=== PATIENT | female | born 1985 | race African-American/Black ===

== ENCOUNTER 2022-12-14 18:40 | Emergency (ER) | payer OTHER ==
[~2022-12-14] VITALS: Ht 172.7 cm; Wt 92.1 kg
[2022-12-14] MEDS ORDERED: ACETAMINOPHEN 500 MG TAB PO ONE (19:30)
[2022-12-14 19:48] LABS: Basophils # (auto) 0 10 ^3/uL (0-0.2); Basophils % (auto) 0.4 % (0.0-2.0); Eosinophils # (auto) 0 10 ^3/uL (0-0.8); Hematocrit 32.9 % (36.0-46.0); Hemoglobin 10.5 g/dL (12.2-16.2); Lymphocytes # (auto) 1.4 10 ^3/uL (0.4-5.4); Lymphocytes % (auto) 39.7 % (10.0-50.0); Mean Corpuscular Hemoglobin 26.6 pg (28.0-32.0); Mean Corpuscular Volume 83.2 fL (80.0-100.0); Monocytes # (auto) 0.2 10 ^3/uL (0-1.3); Monocytes % (auto) 6.9 % (0.0-12.0); Neutrophils # (auto) 1.9 10 ^3/uL (1.6-8.6); Nucleated Red Blood Cells % 0.2 %; Red Blood Cells 3.96 10^6/uL (4.0-5.20); Red Cell Distribution Width 13.6 % (11.8-14.3); White Blood Cell 3.6 10^3/uL (4.4-10.8)
[2022-12-14 20:03] LABS: INR 0.99 (0.9-1.15); Partial Thromboplastin Time 27.6 sec (24.6-33.4)
[2022-12-14 20:05] LABS: Albumin 3.5 g/dL (3.4-5.0); Calcium 8.5 mg/dL (8.5-10.1); Potassium 3.9 mmol/L (3.5-5.1)
[2022-12-14 20:09] LABS: BUN/Creatinine Ratio 16.4 (10.0-20.0); Bilirubin, Total 0.2 mg/dL (0.2-1.0)
[2022-12-14] MEDS ORDERED: IOHEXOL 350 MG/ML 100ML IJ ONE (20:46)
[2022-12-14 21:33] LABS: Urine Bacteria NONE SEEN /hpf (None Seen); Urine Blood 3+ /uL (Negative); Urine Specific Gravity 1.019 (1.001-1.035); Urine WBC 18 /hpf (0 - 5)
[2022-12-14] MEDS ORDERED: ACET-1158 PO (22:10)
[2022-12-14] MEDS ORDERED: NITR-87 PO (22:10)
[2022-12-14 22:22] VITALS: BP 129/69
== END 2022-12-14 22:46 | disposition home or self-care (01) ==
LOC: ER 18:40
DX: N39.0 Urinary tract infection, site not specified (principal); K52.9 Noninfective gastroenteritis and colitis, unspecified; D64.9 Anemia, unspecified; K76.0 Fatty (change of) liver, not elsewhere classified; R10.2 Pelvic and perineal pain; Z88.5 Allergy status to narcotic agent
CPT/HCPCS: 36415; 71260; 74177; 80053; 81001; 84702; 85025; 85379; 85610; 85730; 86850; 86900; 86901; 99285; Q9967

== ENCOUNTER 2024-11-15 16:10 | Emergency (ER) | payer MEDICAID, OTHER ==
[~2024-11-15] VITALS: Ht 170.2 cm; Wt 105.7 kg
[~2024-11-15 16:10] MED LIST: ACET500T58 PO; AZIT500T66 PO; IBUP-1456 PO; NITR-87 PO; PROM1SOL4 PO
--- NOTE | 2024-11-15 16:39 | ED.PDOC ---
JUNIOR TECHNICAL WRITER HPI Comments 39y F who presents to the ED for chief complaint of vaginal bleeding. - pt states she was leaning over her bed earlier this afternoon and states while straining, she felt "a gush of blood " and went to bathroom and noted she saw passed some blood - pt states she applied diaper and preceded to call her OB who referred her to the ED for further evaluation - pt states she is currently 14 1/2 weeks and states she was diagnosed with placenta previa in this , - pt is currently , 1 miscarriage, with 6 live births and 1- csection - pt otherwise states she is taking Lovenox for history of PE and is otherwise on pre-kendrick vitamins Past medical history: Pulmonary embolus past surgical history: 1x Medications: lovenox, pre-kendrick vitamins Allergies: codeine Social history: denies ETOH, denies tobacco use, denies drug use [place] HPI: Poor Historian. Patient has pinkish water discharge. We will rule out premature rupture of membrane. Patient is on Lovenox for history of PEs. Denies any recent fall or trauma. Onset of symptoms happened as she was st raining herself trying to get out of bed from a reclined position. Past Medical History: Past Surgical History: REVIEW OF SYSTEMS: CONSTITUTIONAL: Denies acute: fever, diaphoresis, chills, generalized weakness. HEAD: Denies acute: headache, photophobia Eyes: Denies acute: Double vision, vision loss, eye pain, eye discharge. EARS: Denies acute: tinnitus, hearing loss, ear discharge, ear pain, THROAT: Denies acute: sore throat, swelling, difficulty swallowing , pain with swallowing, change in voice. NECK: Denies acute: neck pain, neck swelling, stiff neck. HEART: Denies acute : chest pain, palpitations, LUNGS: Denies acute: SOB, wheezing, cough, hemoptysis ABDOMEN: Denies acute: abdominal pain, Nausea, Vomiting, diarrhea, melena , hematemesis, hematochezia SKIN: Denies acute: rash, redness, lesions, itchiness. EXTREMITIES: Denies acute: calf pain, numbness, tingling, weakness, denies pain in extremity. Denies acute: Low back pain. Neuro: Denies acute: focal neurological deficit, motor or sensory focal neurological deficit, tremors, seizure like activity, confusion, dizziness, change in mental status, loss of bowel or bladder function, cauda equina like symptoms. : Denies acute: dysuria, hematuria, flank pain, increase in urinary frequency. PSYCH: Denies acute: hallucination, suicidal ideation, homicidal ideation. FEMALE: Denies acute: foul odor, PHYSICAL EXAM: General: ---no-----acute distress, awake and alert. Head: normocephalic, atraumatic. Neck: supple, trachea is midline, no swelling. Throat: Normal phonation. Eyes:, no erythema, no purulent discharge, no proptosis, no icterus. Heart: regular rate, regular rhythm, no significant murmur appreciated. Lungs: no apparent respiratory distress, Able to speak in full sentences. No wheezing, no rhonchi, no crackles. No stridors Clear to auscultation bilaterally. Abdomen: non tender to palpation, non distended, soft, no guarding, no rebound, + bowel sounds. Obese Neuro: Awake, Alert, oriented to name, self, situation, follows commands GCS=15. Speech is normal. Skin: no petechia, no purpura, no cyanosis, non-pale, not jaundice. Lower extremities: --no - Pitting edema no deformity, no focal swelling, no calf TTP. Makes eye contact. moves all four extremities. Face: no apparent facial droop. Ambulating in the ED independently. ED COURSE: Chief Complaint: Vaginal Bleed Time Seen by MD: 16:54 Reviewed Notes: Nurses Notes, Medications, Allergies Allergies: Coded Allergies: Codeine (Verified Allergy, Mild, 12/14/22) Home Meds Active Scripts Cephalexin Monohydrate (Cephalexin) 500 Mg Tab, 1 TAB PO TID for 5 Days, #15 TAB Prov:CHRISSIE VERDUGO DO 11/15/24 Promethazine-Dm (Promethazine Dm 6.25-15 mg/5Ml) 1 Morelia Morelia, 5 ML PO TID, #150 ML Prov:WILLIAM COMBS 11/01/23 Azithromycin (Azithromycin) 500 Mg Tab, 1 TAB PO DAILY, #5 TAB Prov:WILLIAM COMBS PA 11/01/23 Ibuprofen (Ibuprofen) 800 Mg Tab, 1 TAB PO TID, #30 TAB Prov:WILLIAM COMBS PA 11/01/23 Acetaminophen (Acetaminophen) 500 Mg Tab, 500 MG PO Q4HP PRN, #30 TAB Prov:NANCY ASH PAC 12/14/22 Nitrofurantoin Monohydrate Mac (Macrobid) 100 Mg Cap, 100 MG PO BID for 7 Days, #14 CAP Prov:NANCY ASH PAC 12/14/22 Information Source: Patient Mode of Arrival: Ambulatory Past Medical History PAST MEDICAL HISTORY: Denies Surgical History: Denies all surgeries LEGEND MAKER History: Denies all LEGEND MAKER Hx Family History Family History: Reviewed,noncontributory to illness Social History Smoker: Non-Smoker Alcohol: Denies ETOH Use Drugs: Denies Drug Use Lives In: Home Was a procedure done? Was a procedure done?: No Differential Diagnosis (LEGEND MAKER) Vaginal Bleeding: - Complete, - Incomplete, - Inevitable, - Missed, - Threatened, Abruptio Placentae, Blood Loss Anemia, Cervicitis, Dysmenorrhea, Ectopic , Hormonal, Menorrhagia, Menometrorrhagia, Menstrual Bleeding, Myomatous Uterus, PID, Placenta Previa, Precipitous Hct, Trauma, UTI, Vaginitis, Other X-Ray, Labs, Meds, VS Vital Signs Date Time Temp Pulse Resp B/P (MAP) Pulse Ox O2 Delivery O2 Flow Rate FiO2 11/15/24 19:30 98.6 76 20 117/64 (81) 100 98.6 11/15/24 19:20 Room Air* 0 21 11/15/24 16:46 98.8 91 18 133/76 (95) 98 98.8 Lab Test 11/15/24 16:44 11/15/24 16:33 Range/Units White Blood Count 6.9 4.4-10.8 10^3/uL Red Blood Count 3.92 L 4.0-5.20 10^6/uL Hemoglobin 10.3 L 12.2-16.2 g/dL Hematocrit 31.3 L 36.0-46.0 % Mean Corpuscular Volume 79.7 L 80.0-100.0 fL Mean Corpuscular Hemoglobin 26.2 L 28.0-32.0 pg Mean Corpuscular Hemoglobin Concent 32.8 32.0-36.0 g/dL Red Cell Distribution Width 15.8 H 11.8-14.3 % Platelet Count 187 140-450 10^3/uL Mean Platelet Volume 8.8 6.9-10.8 fL Neutrophils (%) (Auto) 68.3 37.0-80.0 % Lymphocytes (%) (Auto) 23.4 10.0-50.0 % Monocytes (%) (Auto) 7.3 0.0-12.0 % Eosinophils (%) (Auto) 0.7 0.0-7.0 % Basophils (%) (Auto) 0.3 0.0-2.0 % Neutrophils # (Auto) 4.7 1.6-8.6 10 ^3/uL Lymphocytes # (Auto) 1.6 0.4-5.4 10 ^3/uL Monocytes # (Auto) 0.5 0-1.3 10 ^3/uL Eosinophils # (Auto) 0.1 0-0.8 10 ^3/uL Basophils # (Auto) 0 0-0.2 10 ^3/uL Nucleated Red Blood Cells 0.0 % Sodium Level 135 L 136-145 mmol/L Potassium Level 3.6 3.5-5.1 mmol/L Chloride Level 106 98-107 mmol/L Carbon Dioxide Level 21 20-31 mmol/L Anion Gap 8 5-15 Blood Urea Nitrogen 7 L 9-23 mg/dL Creatinine 0.64 0.550-1.02 mg/dL Glomerular Filtration Rate Calc 114 >90 mL/min BUN/Creatinine Ratio 10.9 10.0-20.0 Serum Glucose 144 H 74-106 mg/dL Calcium Level 9.7 8.7-10.4 mg/dL Total Bilirubin 0.2 0.2-1.0 mg/dL Aspartate Amino Transferase (AST) 8 L 13-40 U/L Alanine Aminotransferase (ALT) < 9 7-40 U/L Alkaline Phosphatase 40 L 46-116 U/L Total Protein 7.1 5.7-8.2 g/dL Albumin 4.2 3.2-4.8 g/dL Beta HCG, Quantitative 384577.6 H 1.5-4.2 mIU/mL Urine Color Light-yellow Yellow Urine Clarity Clear Clear Urine pH 6.0 5.0-9.0 Urine Specific [place] 1.028 1.001-1.035 Urine Protein Trace H Negative Urine Ketones Trace Negative Urine Blood 2+ H Negative /uL Urine Nitrite Negative Negative Urine Bilirubin Negative Negative Urine Urobilinogen 2 H Negative mg/dL Urine Leukocyte Esterase Negative Negative /uL Urine RBC 12 0 - 4 /hpf Urine Microscopic WBC 2 0-5 /HPF Urine Squamous Epithelial Cells Few <5 /hpf Urine Bacteria None seen None Seen /hpf Urine Glucose 4+ H Normal mg/dL Current Medications Medications (Trade) Dose Ordered Sig/Kathryn Route Start Time Stop Time Status Last Admin Sodium Chloride 1,000 ml @ 1,000 mls/hr Q1H ONCE IV 11/15/24 17:30 11/15/24 18:29 DC 11/15/24 18:19 Ampicillin Sodium 2 gm/Sodium Chloride 100 ml @ 100 mls/hr ONCE ONCE IV 11/15/24 17:30 11/15/24 18:29 DC 11/15/24 19:20 [place] [id number] Ph: [phone] DIAGNOSTIC IMAGING Diagnostic Imaging Report : [id number] Signed PATIENT: LINDA BERMUDEZACCT: [id number] UNIT: [id number] : 1985 LOC: ER ROOM / BED: / AGE / SEX: 39 / F ADM STATUS: REG ER SERVICE 1631 ORDERING PHYSICIAN: CHRISSIE VERDUGO DO PROCEDURE(s): OBUS - OB ULTRASOUND COMP GTR 14 WKS REASON: vag bleed ORDER NUMBER(s): [id number], ACCESSION NUMBER(s): [id number] LIMITED OB ULTRASOUND > 14 WKS: HISTORY: vag bleed TECHNIQUE: Multiple real-time grayscale images of the gravid uterus with duplex Doppler color flow and M-mode spectral analysis. TRANSDUCER: Transabdominal and transvaginal COMPARISON: None FINDINGS: IUP single live fetus at 14 weeks and 6 days based on composite averages of the BPD, head circumference, abdominal circumference and femur length. Biparietal diameter is 2.7 cm, head circumference is 10.9 cm, abdominal circumference is 8.6 cm, and femur length is 1.5 cm. Estimated weight 104 grams heart rate 152 beats per minute MVP is 4.3 cm. Cervix is closed. The cervical length is 4.5 cm. Breech Presentation Posterior placenta without evidence of abruption. The placenta is low-lying and appears to cover the internal os. IMPRESSION: 1. IUP single live fetus at 14 weeks 6 days AUA corresponding to an AURELIO of 05/10/2025. 2. Placenta covers the internal cervical os, concerning for placenta previa. Giv en the relative early gestational age this could potentially resolve over time. Recommend attention on follow-up. ATED BY: VIOLA GLOVER DO DICTATED DATE/TIME: 11/15/241755 SIGNED BY: VIOLA GLOVER DO SIGNED DATE/TIME: 11/15/241755 CC: Time of 1ST Reevaluation: 18:24 (The case was discussed with the [facility] on- call team (HPI, physical exam, labs and diagnostic tests that were available at the time of disposition, ED course, treatment plan) on the phone. They recommend discharging the patient home with Keflex, no sex complete pelvic rest no heavy lifting no exercise follow up with the [facility] doctor tomorrow. Dr. Castaneda. ) Reevaluation 1ST: Improved Patient Education/Counseling: Diagnosis, Treatment Family Education/Counseling: No Family Present Comments Patient presented with the above HPI.--vaginal bleed in versus premature rupture of membranes----workup was initiated. patient was found with the above mentioned diagnosis. the following medications were ordered: please refer to order lists of meds and tests obtained by myself Dr. Verdugo. Patient ED course and VS have been stabilized. Patient has been reassessed in the ED and remained in a stable condition. Pertinent incidental findings were discussed with the patient and/or family. Patient/family voices understanding and is agreeable with plan. Patient has been observed in the ED adequate length of time to insure improvement/stability. Escalation of care considered: Consideration of escalation to observation or admission Case was discussed with [facility] on-call. They recommend discharge the patient home and outpatient follow up and antibiotics. Patient was DISCHARGED home in a stable condition. All the reports of any imaging studies that were ordered by myself were reviewed by myself. Departure 1 Departure Time of Disposition: 18:37 Impression: Primary Impression: Premature rupture of membranes (PROM) affecting ninth Additional Impressions: Vaginal bleeding during Placenta previa Disposition: 01 HOME / SELF CARE / HOMELESS Condition: Stable Additional Instructions: Additional discharge instructions: You MUST follow-up with your primary care/family doctor in 1 to 2 days. If you are unable to see your primary care/family doctor, please return to our emergency room for re-assessment and re-evaluation in 1 to 2 days. Return to the emergency room here in our facility or to the nearest ER [facility] if your symptoms change or worsen. CONSULTATIONS: you MUST Follow-up for consultation as soon as possible with: [facility] DOCTOR TOMORROW MORNING. You MUST call the consultants office yourself to make an appointment. You may need to arrange that through your insurance and/or your primary/family doctor. If you are unable to see the consultant technology in 1 to 2 days, you must return to our emergency room (or any other ER of your choice) for re-assessment and re- evaluation. Adequate fluid hydration. ABSOLUTE PELVIC REST. NO SEX. NO STRAINING. NO LIFTING. NO EXERCISE. YOU MUST FOLLOW UP WITH THE [facility] DOCTOR TOMORROW AT THEIR A SIGNED FACILITY. Repeat beta-hCG levels in 48-72 hours. Repeat pelvic ultrasound in 4-5 days. Below is a copy of your radiological report for follow up: [place] [id number] Ph: [phone] DIAGNOSTIC IMAGING Diagnostic Imaging Report : [id number] Signed PATIENT: LINDA BERMUDEZ ACCT: [id number] UNIT: [id number] : 1985 LOC: ER ROOM / BED: / AGE / SEX: 39 / F ADM STATUS: REG ER SERVICE 1631 ORDERING PHYSICIAN: CHRISSIE VERDUGO DO PROCEDURE(s): OBUS - OB ULTRASOUND COMP GTR 14 WKS REASON: vag bleed ORDER NUMBER(s): [id number], ACCESSION NUMBER(s): [id number] LIMITED OB ULTRASOUND > 14 WKS: HISTORY: vag bleed TECHNIQUE: Multiple real-time grayscale images of the gravid uterus with duplex Doppler color flow and M-mode spectral analysis. TRANSDUCER: Transabdominal and transvaginal COMPARISON: None FINDINGS: IUP single live fetus at 14 weeks and 6 days based on composite averages of the BPD, head circumference, abdominal circumference and femur length. Biparietal diameter is 2.7 cm, head circumference is 10.9 cm, abdominal circumference is 8.6 cm, and femur length is 1.5 cm. Estimated weight 104 grams heart rate 152 beats per minute MVP is 4.3 cm. Cervix is closed. The cervical length is 4.5 cm. Breech Presentation Posterior placenta without evidence of abruption. The placenta is low-lying and appears to cover the internal os. IMPRESSION: 1. IUP single live fetus at 14 weeks 6 days AUA corresponding to an AURELIO of 05/10/2025. 2. Placenta covers the internal cervical os, concerning for placenta previa. Given the relative early gestational age this could potentially resolve over time. Recommend attention on follow-up. ATED BY: VIOLA GLOVER DO DICTATED DATE/TIME: 11/15/241755 SIGNED BY: VIOLA GLOVER DO SIGNED DATE/TIME: 11/15/241755 CC: e-Prescriptions Cephalexin Monohydrate (Cephalexin) 500 Mg Tab 1 TAB PO TID for 5 Days, #15 TAB Prov: CHRISSIE VERDUGO DO 11/15/24 Discharged With: Self Critical Care Note Critical Care Time?: No I personally scribed for CHRISSIE VERDUGO DO (KEEGAN) on 11/15/24 at 16:39. Electronically submitted by Gustavo Goel ([email or web address]). I personally scribed for CHRISSIE VERDUGO DO (KEEGAN) on 11/15/24 at 16:54. Electronically submitted by Gustavo Goel ([email or web address]). I personally scribed for CHRISSIE VERDUGO DO ([email or web address]) on 11/15/24 at 18:18. Electronically submitted by Gustavo Goel ([facility] [email or web address]). CHRISSIE VERDUGO DO Nov 15, 2024 16:39
[2024-11-15 16:58] LABS: Urine Bacteria None Seen /hpf (None Seen)
[2024-11-15 17:07] LABS: Urine Blood 2+ /uL (Negative); Urine Clarity Clear (Clear); Urine Color Light-Yellow (Yellow); Urine Protein, UAD TRACE (Negative); Urine Specific Gravity 1.028 (1.001-1.035); Urine Squamous Epithelial Cell FEW /hpf (<5); Urine Urobilinogen 2 mg/dL (Negative); Urine WBC 2 /HPF (0-5)
[2024-11-15 17:12] LABS: Basophils # (auto) 0 10 ^3/uL (0-0.2); Eosinophils % (auto) 0.7 % (0.0-7.0); Hematocrit 31.3 % (36.0-46.0); Lymphocytes # (auto) 1.6 10 ^3/uL (0.4-5.4); Monocytes # (auto) 0.5 10 ^3/uL (0-1.3); Red Cell Distribution Width 15.8 % (11.8-14.3)
[2024-11-15 17:13] LABS: Basophils % (auto) 0.3 % (0.0-2.0); Eosinophils # (auto) 0.1 10 ^3/uL (0-0.8); Hemoglobin 10.3 g/dL (12.2-16.2); Lymphocytes % (auto) 23.4 % (10.0-50.0); Mean Corpuscular Hemoglobin 26.2 pg (28.0-32.0); Mean Corpuscular Hgb Conc. 32.8 g/dL (32.0-36.0); Mean Corpuscular Volume 79.7 fL (80.0-100.0); Monocytes % (auto) 7.3 % (0.0-12.0); Neutrophils # (auto) 4.7 10 ^3/uL (1.6-8.6); Neutrophils % (auto) 68.3 % (37.0-80.0); Platelet Count (auto) 187 10^3/uL (140-450); Red Blood Cells 3.92 10^6/uL (4.0-5.20); White Blood Cell 6.9 10^3/uL (4.4-10.8)
[2024-11-15 17:20] LABS: Albumin 4.2 g/dL (3.2-4.8); Anion Gap 8 (5-15); BUN/Creatinine Ratio 10.9 (10.0-20.0); Calcium 9.7 mg/dL (8.7-10.4); Carbon Dioxide 21 mmol/L (20-31); Chloride 106 mmol/L (98-107); Potassium 3.6 mmol/L (3.5-5.1); Total Protein 7.1 g/dL (5.7-8.2)
[2024-11-15 17:24] LABS: Alanine Aminotransferase < 9 U/L (7-40); Alkaline Phosphatase 40 U/L (46-116); Aspartate Aminotransferase 8 U/L (13-40); Bilirubin, Total 0.2 mg/dL (0.2-1.0); Blood Urea Nitrogen 7 mg/dL (9-23); Glucose 144 mg/dL (74-106); Sodium 135 mmol/L (136-145)
--- NOTE | 2024-11-15 17:58 | DVH ---
LIMITED OB ULTRASOUND > 14 WKS: HISTORY: vag bleed TECHNIQUE: Multiple real-time grayscale images of the gravid uterus with duplex Doppler color flow an d M-mode spectral analysis. TRANSDUCER: Transabdominal and transvaginal COMPARISON: None FINDINGS: IUP single live fetus at 14 weeks and 6 days based on composite averages of the BPD, head circumferen ce, abdominal circumference and femur length. Biparietal diameter is 2.7 cm, head circumference is 10 .9 cm, abdominal circumference is 8.6 cm, and femur length is 1.5 cm. Estimated weight 104 grams heart rate 152 beats per minute MVP is 4.3 cm. Cervix is closed. The cervical length is 4.5 cm. Breech Presentation Posterior placenta without evidence of abruption. The placenta is low-lying and appears to cover the internal os. IMPRESSION: 1. IUP single live fetus at 14 weeks 6 days AUA corresponding to an AURELIO of 05/10/2025. 2. Placenta covers the internal cervical os, concerning for placenta previa. Given the relative early gestational age this could potentially resolve over time. Recommend attention on follow-up.
[2024-11-15] MEDS: SODIUM CHLORIDE 0.9% 1,000 ML IV ONE (18:19)
[2024-11-15] MEDS: AMPICILLIN SOD 2GM INJ 2 GM in SODIUM CHL 0.9% 100 ML IV ONE (19:20)
[2024-11-15] MEDS ORDERED: CEPH500T PO (19:47)
[2024-11-15 22:30] VITALS: BP 115/65; PULSE 76; RESP 18; TEMP 98.6; O2SAT 100
== END 2024-11-15 21:57 | disposition home or self-care (01) ==
LOC: ER 16:16
DX: O42.912 Preterm premature rupture of membranes, unspecified as to length of time between rupture and onset of labor, second trimester (principal); O20.0 Threatened abortion; O44.02 Complete placenta previa NOS or without hemorrhage, second trimester; O20.9 Hemorrhage in early pregnancy, unspecified; Z79.01 Long term (current) use of anticoagulants; Z79.1 Long term (current) use of non-steroidal anti-inflammatories (NSAID); Z86.711 Personal history of pulmonary embolism; Z88.5 Allergy status to narcotic agent
CPT/HCPCS: 36415; 76805; 76817; 80053; 81001; 84702; 85025; 86850; 86900; 86901; 96361; 96365; 96366; 99285; J0290; J7030